=== PATIENT | male | born 1990 | race African-American/Black ===

== ENCOUNTER 2023-06-24 23:25 | Emergency (ER) | payer SELFPAY ==
[2023-06-24 23:34] VITALS: BP 126/77; PULSE 85; RESP 20; TEMP 98.2; BMI 25.1
[2023-06-24] MEDS ORDERED: ONDANSETRON 4 MG TABLET PO ONE (23:56)
[2023-06-24] MEDS ORDERED: IBUPROFEN 600 MG TABLET (FP) PO ONE (23:57)
[2023-06-24] MEDS: IBUPROFEN 600 MG TABLET (FP) PO ONE (23:58)
[2023-06-24] MEDS: ONDANSETRON 4 MG TABLET PO ONE (23:59)
== END 2023-06-25 01:48 | disposition left against medical advice (07) ==
LOC: JER 23:25
DX: M79.10 Myalgia, unspecified site (principal); R05.9 Cough, unspecified; J02.9 Acute pharyngitis, unspecified; R09.81 Nasal congestion; R50.9 Fever, unspecified; R63.0 Anorexia; R11.0 Nausea; B34.9 Viral infection, unspecified; Z20.822 Contact with and (suspected) exposure to COVID-19
CPT/HCPCS: 0241U-QW; 99283-25